=== PATIENT | female | born 1965 | race Caucasian/White ===

== ENCOUNTER → 2019-11-18 | Outpatient (CLI) | payer OTHER | END | disposition home or self-care (01) | LOC: LABWHC1 10:01 | PROVIDERS: ATTEND Orthopaedic Surgery | DX: Z01.812 Encounter for preprocedural laboratory examination (principal) | CPT/HCPCS: 87070 ==

== ENCOUNTER → 2019-11-25 | Outpatient (CLI) | payer OTHER ==
--- NOTE | 2019-11-26 10:56 | ECHOF ---
Referral Reason:I51.7 cardiomegaly MEASUREMENTS -------- HEIGHT: 157.5 cm WEIGHT: 81.6 kg BP: IVSd: 1.3 cm (0.6 - 1.1) LVIDd: 3.2 cm (3.9 - 5.3) LVPWd: 1.0 cm (0.6 - 1.1) IVSs: 1.8 cm LVIDs: 1.6 cm LVPWs: 1.4 cm LAESV Index (A-L): 26.94 ml/m Ao Diam: 2.3 cm (2.0 - 3.7) AV Cusp: 1.8 cm (1.5 - 2.6) LA Diam: 3.1 cm (2.7 - 3.8) MV EXCURSION: 13.189 mm (> 18.000) MV EF SLOPE: 62 mm/s (70 - 150) EPSS: 0.8 cm MV E Tahir: 1.17 m/s MV DecT: 226 ms MV A Tahir: 0.96 m/s MV E/A Ratio: 1.22 AR PHT: 718 ms RAP: 5.00 mmHg RVSP: 11.86 mmHg TAPSE: 28.46 mm FINDINGS -------- Sinus rhythm. This was a technically good study. The left ventricular size is normal. There is borderline concentric left ventricular hypertrophy. Overall left ventricular systolic function is normal with, an EF between 55 - 60 %. Normal LAP Gra de 1 Diastolic Dysfunction. The right ventricle is normal in size. The left atrial size is normal. Normal LA size by volume 22+/-6 ml/m2. The right atrial size is normal. The aortic valve is trileaflet and appears structurally normal. There is mild aortic regurgitation. The mitral valve is normal. There is trace mitral regurgitation. The tricuspid valve appears structurally normal. Trace tricuspid regurgitation present. Right yaa tricular systolic pressure is normal at < 35 mmHg. There is no pulmonic regurgitation present. The aortic root size is normal. Normal inferior vena cava with normal inspiratory collapse consistent with estimated right atrial pre ssure of 5 mmHg. There is no pericardial effusion. CONCLUSIONS -------- 1. Sinus rhythm. 2. This was a technically good study. 3. The left ventricular size is normal. 4. There is borderline concentric left ventricular hypertrophy. 5. Overall left ventricular systolic function is normal with, an EF between 55 - 60 %. 6. Normal LAP Grade 1 Diastolic Dysfunction. 7. The right ventricle is normal in size. 8. The left atrial size is normal. 9. Normal LA size by volume 22+/-6 ml/m2. 10. The right atrial size is normal. 11. The aortic valve is trileaflet and appears structurally normal. 12. There is mild aortic regurgitation. 13. The mitral valve is normal. 14. There is trace mitral regurgitation. 15. The tricuspid valve appears structurally normal. 16. Trace tricuspid regurgitation present. 17. Right ventricular systolic pressure is normal at < 35 mmHg. 18. There is no pulmonic regurgitation present. 19. The aortic root size is normal. 20. Normal inferior vena cava with normal inspiratory collapse consistent with estimated right atrial pressure of 5 mmHg. 21. There is no pericardial effusion. LATEX RIBBON MACHINE OPERATOR: Liberty Benjamin RDCS
== END | disposition home or self-care (01) ==
LOC: RADECHMAIN 13:11
PROVIDERS: ATTEND Family Medicine
DX: I51.7 Cardiomegaly (principal); I35.1 Nonrheumatic aortic (valve) insufficiency
CPT/HCPCS: 93306

== ENCOUNTER → 2019-11-28 | Outpatient (CLI) | payer OTHER ==
[2019-11-28 09:29] LABS: HCT 41.3 % (34.0-46.0); HGB 13.3 gm/dL (11.4-16.0); MCH 28.5 pg (25.0-35.0); MCHC 32.1 g/dL (31.0-37.0); MCV 88.7 fL (80.0-100.0); Mean Platelet Volume 7.4; Platelet Count 385 k/uL (150-450); RBC 4.65 m/uL (3.80-5.40); RDW 13.3 % (11.5-15.5)
[2019-11-28 09:39] LABS: Appearance,Urine Clear (Clear); Bilirubin,Urine Negative (Negative); Blood,Urine Negative (Negative); Color,Urine Light Yellow; Glucose,Urine (UA) Negative (Negative); Ketones,Urine Negative (Negative); Leukocyte Esterase,Urine Negative (Negative); Nitrite,Urine Negative (Negative); Protein,Urine Negative (Negative); Specific Gravity,Urine 1.014 (1.001-1.035); Urobilinogen,Urine <2.0 mg/dL (<2.0)
[2019-11-28 09:47] LABS: INR 0.9 (<1.2); Partial Thromboplastin Time 22.5 sec (22.0-30.0); Prothrombin Time 9.3 sec (9.0-12.0)
[2019-11-28 09:52] LABS: ALT 16 U/L (4-34); AST 23 U/L (14-36); African American GFR (CKD) >90 (>60 ml/min/1.73 sqM); Albumin 4.6 g/dL (3.5-5.0); Alkaline Phosphatase 74 U/L (38-126); Anion Gap 8 mmol/L; Blood Urea Nitrogen 13 mg/dL (7-17); Calcium 9.9 mg/dL (8.4-10.2); Carbon Dioxide 30 mmol/L (22-30); Chloride 102 mmol/L (98-107); Glucose 125 mg/dL (74-99); Non-African American GFR(CKD) >90 (>60 ml/min/1.73 sqM); Potassium 4.4 mmol/L (3.5-5.1); Sodium 140 mmol/L (137-145); Total Bilirubin 0.6 mg/dL (0.2-1.3); Total Protein 7.8 g/dL (6.3-8.2)
== END | disposition home or self-care (01) ==
LOC: LABPAT 08:59
PROVIDERS: ATTEND Orthopaedic Surgery
DX: Z01.812 Encounter for preprocedural laboratory examination (principal); M16.11 Unilateral primary osteoarthritis, right hip; Z51.81 Encounter for therapeutic drug level monitoring
CPT/HCPCS: 36415; 80053; 81003; 85027; 85610; 85730

== ENCOUNTER 2019-12-09 06:57 | Day surgery (SDC) | payer OTHER ==
[2019-12-03 14:33] VITALS: BMI 32.9
[~2019-12-09 06:57] MED LIST: DEXAMETHASONE SOD PHOSPHATE 10 MG/ML 1 ML VIAL IV ONE; GABAPENTIN 300 MG CAP PO ONE; HYDROmorphone 0.5 MG/0.5 ML SYRINGE IVP PRN; LIDOCAINE 1% (10MG/ML) FOR IV START INTRADERMA PRN; MELOXICAM 7.5 MG TAB PO ONE; MIDAZOLAM 2 MG/2 ML VIAL IV PRN; ONDANSETRON 4 MG/2 ML VIAL IVP ONE; ROPIVACAINE 246.25 MG, EPINEPHrine 0.5 MG, KETOROLAC 30 MG, cloNIDine HCL/PF 80 MCG, WA... MISCELLANE ONE; SCOPOLAMINE 1.5MG/72HR PATCH TRANSDERM ONE; TRANEXAMIC ACID 1,000 MG in SODIUM CHLORIDE 0.9% 100 ML IVPB ONE; VANCOMYCIN 1,250 MG in SODIUM CHLORIDE 0.9% 250 ML IVPB ONE
[2019-12-09] MEDS: ACETAMINOPHEN TAB 500 MG TAB PO ONE ×2 (07:31→15:29)
[2019-12-09] MEDS: LACTATED RINGERS 1,000 ML IV SCH ×4 (07:32→21:37)
[2019-12-09] MEDS ORDERED: LACTATED RINGERS 1,000 ML BAG IV ONE (09:38)
[2019-12-09] MEDS ORDERED: diphenhydrAMINE 50 MG/ML 1 ML VIAL ONE (09:38)
[2019-12-09] MEDS ORDERED: PROPOFOL 10 MG/ML 20 ML VIAL IV ONE (09:38)
[2019-12-09] MEDS ORDERED: fentaNYL (PF) 50 MCG/ML 2 ML AMP ONE (09:38)
[2019-12-09] MEDS ORDERED: SODIUM CHLORIDE 0.9% 100 ML BAG ONE (09:38)
[2019-12-09] MEDS ORDERED: HEPARIN SODIUM,PORCINE 10,000 UNIT/ML 1 ML VIAL ONE (09:38)
[2019-12-09] MEDS ORDERED: MIDAZOLAM 2 MG/2 ML VIAL ONE (09:38)
[2019-12-09] MEDS ORDERED: TRANEXAMIC ACID 1,000 MG/10 ML VIAL ONE (09:38)
[2019-12-09] MEDS ORDERED: LACTATED RINGERS 1,000 ML IV ONE (11:06)
--- NOTE | 2019-12-09 11:18 | P.OP ---
Date of Procedure: 12/09/19 Preoperative Diagnosis: Severe osteoarthritis right hip Postoperative Diagnosis: Severe osteoarthritis right hip Procedure(s) Performed: Right total hip arthroplasty with a direct anterior approach Implants: Clement and nephew Polarstem size 3 standard Clement [employer] Nephew R3, 3 hole acetabular shell, 48 mm Clement [employer] Nephew reflection 6.5 mm cancellus screw, 20 mm 2 Clement [employer] Nephew R3, XLPE 20 acetabular liner Clement [employer] Nephew Oxinium femoral head 32 m, -3 All components were press-fit. The articulation is Oxinium on polyethylene. Anesthesia: spinal Surgeon: Tulio Guzmán Composition Roll Maker And Cutter #1: Kimberli Gillespie Estimated Blood Loss (ml): 200 (66 mL returned in Cell Saver) Pathology: other (Femoral head) Condition: stable Disposition: PACU Indications for Procedure: After failure of conservative treatment we discussed the surgical and nonsurgical treatment options at length. Patient wishes to proceed with a total hip arthroplasty with a direct anterior approach. Complications specific to this procedure were discussed at length, including but not limited to infection, leg length discrepancy, dislocation, and nerve injury. Patient is aware of all these complications and informed consent was obtained Operative Findings: The operative findings are consistent with severe osteoarthritis of the right hip Description of Procedure: Patient was seen and evaluated in the preoperative area, consent was reviewed, and the surgical site was marked with a skin marker. Patient was then brought to the operating room and given prophylactic antibiotics intravenously. 1 g of Tranexamic acid was also given. A spinal anesthetic was administered by the anesthesia department. The patient was then placed on the [place] table with the bony prominences well-padded. The hip area was then prepped and draped in usual sterile fashion. A universal timeout was then performed, which confirmed the patient's name, surgical site, ALLERGIES, and procedure being performed. Next the incision site was located at 1 cm distal and 1 cm lateral to the anterior superior iliac spine. The skin and subcutaneous tissues were sharply incised. Incision was carefully dissected down to the fascia overlying the tensor fascia monica muscle. This fascia was then incised in line with the incision. Next, using blunt finger dissection, the tensor fascia monica muscle was dissected off its investing fascia. The muscle was then carefully retracted laterally with a cobra retractor over the lateral neck of the femur. Next, the circumflex vessels were identified and cauterized using the AquaMantis device. The anterior hip capsule was then exposed. The capsule was then opened and an inverted T fashion. Cobra retractors were then placed intracapsularly. The proximal femur was then vi sualized. The femoral neck was then osteotomized appropriate level above the lesser trochanter. Small amount of traction was placed with the [place] table. A small wedge of bone was then removed from the remaining femoral head. Next, using a corkscrew femoral head was easily removed from the acetabulum. On gross visual inspection, the femoral head had complete loss of articular cartilage in mult iple periarticular osteophytes. Attention was then turned to the acetabulum. the acetabulum was exposed and any remaining labrum was excised. Sequential reaming of the acetabulum was performed using fluoroscopic guidance. When the appropriate size was reached, a trial was then placed. The position and fit of the trial was checked with fluoroscopy. The trial was then removed. Then, using fluoroscopic guidance, the final implant was impacted at 20 of anteversion and 40 of abduction, and fully seated in the acetabulum. 2 screws were then placed in the acetabulum. Again fluoroscopy was used to check position of the screws. Next, the liner was then impacted, with a 20 elevated liner located in the anterior superior quadrant. Component locking was confirmed. Attention was then directed to the femur. With the aid of the [place] table, the femur was externally rotated to approximately 130, extended, and abducted under the opposite leg. A side hook was then placed under the proximal femur, and the side hook elevator was used to elevate the proximal femur. Retractors were then placed. A capsular release was performed, as well as a release of the conjoined tendon, which afforded excellent visualization of the proximal femur. Next, a box osteotome was used to lateralize the proximal femur. A guitar maker hand was then used to locate the femoral canal. Sequential broaching was then performed with appropriate size which afforded excellent fixation in the proximal femur. A trial was then placed with appropriate head and neck, and the hip was gently reduced with the aid of the [place] table. Fluoroscopy was then used to check position of the components, as well as to ensure equal leg lengths. The hip was then gently dislocated and the trials were then removed. Final implants were then impacted and the hip was again reduced. Final fluoroscopic x-rays confirmed that the components were in anatomic position, as well as equal leg lengths. The hip was also taken through range of motion, and found to be stable. The hip was then copiously irrigated with antibiotic solution with pulsatile lavage. The hip was then irrigated with Irrisept solution. The soft tissues we re then injected with a ropivacaine solution, which consisted of 246.25 mg of ropivacaine, 0.5 mg of epinephrine, 30 mg of Toradol, 80 g of clonidine, and 48.45 mL of sterile water, for a total of 100 mL of fluid injected. A second dose of 1 g of Tranexamic acid was also given. the fascia was then closed with 2-0 strata fix suture. The subcutaneous tissue was closed with 3-0 Vicryl. The subcuticular tissue was closed with 3-0 strata fix suture. The skin was then closed with Dermabond glue and a sterile silver dressing. The patient was then transferred to the recovery room in stable cond ition. The nurses medical assistants phlebotomists Kimberli Gillespie NP was required due to the complexity of surgery, and the need for skilled surgical scrub tech for positioning, draping, exposure, retraction, and closure of the wound.
--- NOTE | 2019-12-09 11:19 | XR ---
Fluoroscopy INDICATION: Pain FINDINGS: Fluoroscopy time: 25 seconds. Images obtained: 2. IMPRESSIONS: 1. Documentation of fluoroscopy.
[2019-12-09] MEDS ORDERED: ONDANSETRON 4 MG/2 ML VIAL IVP PRN (11:28)
[2019-12-09] MEDS ORDERED: hydrOXYzine PAMOATE 25 MG CAP PO PRN (11:28)
[2019-12-09] MEDS ORDERED: HYDROmorphone 1 MG/ML 1 ML SYRINGE IVP PRN (11:28)
[2019-12-09] MEDS ORDERED: HYDROmorphone 0.5 MG/0.5 ML SYRINGE IVP PRN ×2 (11:28)
[2019-12-09] MEDS ORDERED: NALOXONE 0.4 MG/ML 1 ML VIAL IV PRN (11:28)
[2019-12-09] MEDS ORDERED: MAGNESIUM HYDROXIDE 2,400 MG/10 ML CUP PO PRN (11:28)
--- NOTE | 2019-12-09 12:03 | XR ---
EXAMINATION TYPE: XR Hip Limited RT DATE OF EXAM: 12/09/2019 COMPARISON: None HISTORY: Post right hip replacement TECHNIQUE: Single AP right hip FINDINGS: Femoral prosthesis has been placed. Acetabular component is in place. No acute fractures ar e evident. Soft tissues postsurgical changes are noted. IMPRESSION: 1. No acute fractures post right hip replacement.
[2019-12-09] MEDS: oxyCODONE-APAP 7.5-325MG 1 EACH TAB PO PRN (18:22)
[2019-12-09] MEDS ORDERED: VANCOMYCIN 1,250 MG in SODIUM CHLORIDE 0.9% 250 ML IVPB ONE (20:00)
[2019-12-09] MEDS ORDERED: TEMAZEPAM 15 MG CAP PO PRN (21:00)
[2019-12-09] MEDS ORDERED: SENNOSIDES-DOCUSATE SODIUM 1 EACH TAB PO SCH (21:00)
--- NOTE | 2019-12-09 22:03 | P.CONS ---
History of Present Illness - Reason for Consult Consult date: 12/09/19 Medical management Requesting physician: Tulio Guzmán - Chief Complaint Right hip surgery - History of Present Illness Consultation: This is a pleasant 54-year-old patient of Dr. Cordero. Chronic stable medical conditions include GERD, hypertension, osteoarthritis,. Patient has undergone right total hip arthroplasty. Some local numbness. Pain is controlled. No na usea vomiting. Did tolerate some supper. Sitting up in a chair. No chest pain no shortness of breath. Review of systems: GEN.: None EYES: None HEENT: None NECK: None RESPIRATORY: None CARDIOVASCULAR: None GASTROINTESTINAL: [Reflux GENITOURINARY: None MUSCULOSKELETAL: Joint pains LYMPHATICS: None HEMATOLOGICAL: None PSYCHIATRY: None NEUROLOGICAL: None Past medical history to include: GERD, hypertension, osteoarthritis, Social history: Patient smoked a pack daily for 22 years, stopped 17 years ago. Narcotic. His daughter. Physical examination: VITAL SIGNS: 97.9, 61, 18, 104/67, 98% room air GENERAL: BMI 32.9, sitting up in a chair, comfortable. EYES: Pupils equal. Conjunctiva normal. HEENT: External appearance of nose and ears normal, oral cavity grossly normal. NECK: JVD not raised; masses not palpable. HEART: First and second heart sounds are normal; no edema. LUNGS: Respiratory rate normal; clear to auscultation. ABDOMEN: Soft, nontender, liver spleen not palpable, no masses palpable. PSYCH: Alert and oriented x3; mood and affect normal. MUSCULOSKELETAL: Dressing over the right hip incision site NEUROLOGICAL: Cranial nerves grossly intact; no facial asymmetry, power and sensation grossly intact. LYMPHATICS: No lymph nodes palpable in the axilla and neck INVESTIGATIONS, reviewed in the clinical context: Lab work from 11/28/2019.: White count 6 hemoglobin 13.3 potassium 4.4 creatinine 0.7 Assessment: -Right total hip arthroplasty -Primary osteoarthritis -Essential hypertension -GERD -Obesity BMI 32.9 Plan: Home medications were resumed. Patient's aspirin for DVT prophylaxis. Care was discussed with the patient question were answered. Thank you Dr. Guzmán Past Medical History Past Medical History: GERD/Reflux, Hypertension, Osteoarthritis (OA) Additional Past Medical History / Comment(s): recent echo, bulging disc History of Any Multi-Drug Resistant Organisms: None Reported Past Surgical History: Section, Cholecystectomy Past Anesthesia/Blood Transfusion Reactions: No Reported Reaction Past Psychological History: Anxiety Additional Psychological History / Comment(s): related to surgery Smoking Status: Former smoker Past Alcohol Use History: Rare Additional Past Alcohol Use History / Comment(s): quit smoking 17 yrs. ago, smoked since age of 16 1ppd Past Drug Use History: None Reported - Past Family History Father Family Medical History: Cancer Additional Family Medical History / Comment(s): prostate Medications and Allergies Home Medications Medication Instructions Recorded Confirmed Type Cuterei-Gbwz-Miov [id number] 2 each PO Q6HR PRN 12/03/19 12/03/19 History [Excedrin] Black Cohosh Root [Black Cohosh] 200 mg PO DAILY 12/03/19 12/03/19 History Cholecalciferol [Vitamin D3 (25 2,000 unit PO DAILY 12/03/19 12/09/19 History Mcg = 1000 Iu)] Dexlansoprazole [Dexilant] 60 mg PO Q2D 12/03/19 12/03/19 History Docusate [Colace] 100 mg PO DAILY 12/03/19 12/09/19 History Lisinopril [Zestril] 20 mg PO DAILY 12/03/19 12/03/19 History Meloxicam [Mobic] 15 mg PO DAILY 12/03/19 12/03/19 History Multivitamins, Thera [Multivitamin 1 tab PO DAILY 12/03/19 12/03/19 History (formulary)] oxyCODONE-APAP 7.5-325MG [Percocet 1 tab PO Q6HR PRN 12/03/19 12/03/19 History 7.5-325 mg] Allergies Allergy/AdvReac Type Severity Reaction Status Date / Time No Known Allergies Allergy Verified 12/09/19 07:15 Physical Exam Vitals: Vital Signs Temp Pulse Pulse Resp BP Pulse Ox 12/09/19 15:40 65 97/63 12/09/19 15:25 63 99/65 12/09/19 15:10 63 104/69 12/09/19 14:55 63 99/64 12/09/19 14:40 68 94/59 12/09/19 14:25 68 93/59 12/09/19 14:10 68 95/59 12/09/19 13:55 67 98/62 12/09/19 13:40 67 100/64 12/09/19 13:20 64 101/67 12/09/19 13:05 97.9 F 61 18 104/67 98 12/09/19 12:45 64 16 109/57 95 12/09/19 12:30 67 16 107/56 92 L 12/09/19 12:15 64 14 107/56 94 L 12/09/19 12:01 62 16 107/56 93 L 12/09/19 11:47 61 16 121/61 95 12/09/19 11:31 97.4 F L 70 12 138/63 95 12/09/19 07:46 97.0 F L 89 17 166/98 98 Intake and Output 12/09/19 12/09/19 12/09/19 06:59 14:59 22:59 Intake Total 2550 Output Total 200 Balance 2350 Intake: IV 2550 Output: Estimated Blood Loss 200 Other: Voiding Method Toilet # Voids 0 Weight 81.647 kg
[2019-12-10] MEDS: oxyCODONE-APAP 7.5-325MG 1 EACH TAB PO PRN ×3 (00:38→12:05)
[2019-12-10 03:37] VITALS: TEMP 98
[2019-12-10] MEDS: LACTATED RINGERS 1,000 ML IV SCH (06:35)
[2019-12-10 07:58] LABS: Basophils % (A) 0 %; Eosinophils # (A) 0.1 k/uL (0-0.7); Eosinophils % (A) 1 %; HCT 30.2 % (34.0-46.0); Lymphocytes # (A) 2.4 k/uL (1.0-4.8); Lymphocytes % (A) 24 %; MCH 27.5 pg (25.0-35.0); MCV 88.7 fL (80.0-100.0); Mean Platelet Volume 7.6; Monocytes # (A) 0.7 k/uL (0-1.0); Monocytes % (A) 7 %; Neutrophils # (A) 6.4 k/uL (1.3-7.7); Neutrophils % (A) 65 %; Platelet Count 330 k/uL (150-450); RDW 13.1 % (11.5-15.5); WBC 9.8 k/uL (3.8-10.6)
[2019-12-10 08:00] VITALS: BP 106/65; PULSE 67; RESP 17
--- NOTE | 2019-12-10 08:03 | P.DS ---
Providers Expected date of discharge: 12/10/19 Attending physician: Tulio Guzmán Consults: 12/09/19 11:28 Consult Physician Routine Consulting Provider: Liban Trinidad Consult Reason/Comments: medical management Do you want consulting provider notified?: Yes Primary care physician: Mamadou Cordero - Discharge Diagnosis(es) (1) Osteoarthritis of right hip Current Visit: Yes Status: Acute (2) Status post total replacement of right hip Current Visit: Yes Status: Acute Hospital Course: This is a 54-year-old female with known history of degenerative arthritis of the right hip. The patient presents for evaluation. After discussion and consideration patient elects to proceed with total hip arthroplasty. The patient is seen preoperatively by Dr. Cordero and cleared for surgery. Patient is admitted to [facility] on 12/09/2019 for right anterior total hip arthroplasty. The procedures performed without complication or sequelae. The patient is doing well postoperatively. Labs and vital signs are stable on day of discharge. On day of discharge patient's hip incision is healing well. There is minimal erythema. There is no drainage noted at this time. There is minimal soft tissue swelling to the hip and thigh. Patient has full foot and ankle motion without difficulty or pain. Neurovascular status to the right lower extremity is intact. Patient is discharged to home with homecare in good condition. Pertinent Studies: Laboratory Tests 12/10/19 07:04 WBC 9.8 RBC 3.40 L Hgb 9.3 L D Hct 30.2 L Patient Condition at Discharge: Stable Plan - Discharge Summary Discharge Rx Participant: Yes New Discharge Prescriptions: New Aspirin 325 mg PO BID #60 tab Sennosides-Docusate Sodium [Senokot-S] 2 tab PO DAILY #30 tablet No Action oxyCODONE-APAP 7.5-325MG [Percocet 7.5-325 mg] 1 tab PO Q6HR PRN PRN Reason: Pain Cholecalciferol [Vitamin D3 (25 Mcg = 1000 Iu)] 2,000 unit PO DAILY [id number]-Bnyd-Prtj [id number] [Excedrin] 2 each PO Q6HR PRN PRN Reason: Pain Meloxicam [Mobic] 15 mg PO DAILY Lisinopril [Zestril] 20 mg PO DAILY Multivitamins, Thera [Multivitamin (formulary)] 1 tab PO DAILY Docusate [Colace] 100 mg PO DAILY Dexlansoprazole [Dexilant] 60 mg PO Q2D Black Cohosh Root [Black Cohosh] 200 mg PO DAILY Discharge Medication List Xnztvir-Gbqj-Mzsk [id number] [Excedrin] 2 each PO Q6HR PRN 12/03/19 [History] Black Cohosh Root [Black Cohosh] 200 mg PO DAILY 12/03/19 [History] Cholecalciferol [Vitamin D3 (25 Mcg = 1000 Iu)] 2,000 unit PO DAILY 12/03/19 [History] Dexlansoprazole [Dexilant] 60 mg PO Q2D 12/03/19 [History] Docusate [Colace] 100 mg PO DAILY 12/03/19 [History] Lisinopril [Zestril] 20 mg PO DAILY 12/03/19 [History] Meloxicam [Mobic] 15 mg PO DAILY 12/03/19 [History] Multivitamins, Thera [Multivitamin (formulary)] 1 tab PO DAILY 12/03/19 [History] oxyCODONE-APAP 7.5-325MG [Percocet 7.5-325 mg] 1 tab PO Q6HR PRN 12/03/19 [History] Aspirin 325 mg PO BID #60 tab 12/10/19 [Rx] Sennosides-Docusate Sodium [Senokot-S] 2 tab PO DAILY #30 tablet 12/10/19 [Rx] Follow up Appointment(s)/Referral(s): Mamadou Cordero DO [Primary Care Provider] - 1 Week Tulio Guzmán DO [Doctor of Osteopathic Medicine] - 12/24/19 9:45 am Activity/Diet/Wound Care/Special Instructions: Weightbearing as tolerated with walker Keep dressing in place for 10 days unless saturated Aspirin 325 mg twice a day May shower over dressing Pain medication per Dr. Cordero Follow up with Dr. Tulio Guzmán in 2 weeks. Call [facility] with questions or concerns, Discharge Disposition: HOME WITH HOME HEALTH SERVICES
[2019-12-10 08:06] LABS: HGB 9.3 gm/dL (11.4-16.0)
[2019-12-10] MEDS ORDERED: LISINOPRIL 20 MG TAB PO SCH (09:00)
[2019-12-10] MEDS ORDERED: ASPIRIN 325 MG TAB PO SCH (09:00)
--- NOTE | 2019-12-10 22:28 | P.PN ---
Progress Note - Text Progress Note Date: 12/10/19 - Chief Complaint Right hip surgery Consultation: This is a pleasant 54-year-old patient of Dr. Cordero. Chronic stable medical conditions include GERD, hypertension, osteoarthritis,. Patient has undergone right total hip arthroplasty. Today-feeling better. Some pain of the operative site. Her nausea vomiting. Did work with therapy. No new issues. Review of systems: Was done for constitutional, cardiovascular, GI, pulmonary., Musculoskeletal relevant finding as above Current medications reviewed in today's electronic records Physical examination: VITAL SIGNS: 98, 67, 17, 106/65, 100% on room air GENERAL:, sitting up in a chair, comfortable. EYES: Pupils equal. Conjunctiva normal. HEENT: External appearance of nose and ears normal, oral cavity grossly normal. NECK: JVD not raised; masses not palpable. HEART: First and second heart sounds are normal; no edema. LUNGS: Respiratory rate normal; clear to auscultation. ABDOMEN: Soft, nontender, liver spleen not palpable, no masses palpable. PSYCH: Alert and oriented x3; mood and affect normal. MUSCULOSKELETAL: Dressing over the right hip incision site INVESTIGATIONS, reviewed in the clinical context: Hemoglobin 9.3 Lab work from 11/28/2019.: White count 6 hemoglobin 13.3 potassium 4.4 creatinine 0.7 Assessment: -Right total hip arthroplasty -Primary osteoarthritis -Essential hypertension -GERD -Obesity BMI 32.9 -Acute postprocedure blood loss anemia as expected from surgery Plan: Patient's lisinopril has been held. Advised to resume was systolic blood pressure goes above 1:30. Put on iron supplement. Thank you Dr. Guzmán
== END 2019-12-10 14:04 | disposition home health service (06) ==
LOC: OR 06:57 → EDSTATUS 09:10 → 4SSUR 11:14 → OR 12-10 14:04
PROVIDERS: ATTEND Orthopaedic Surgery
DX: M16.11 Unilateral primary osteoarthritis, right hip (principal); I10 Essential (primary) hypertension; K21.9 Gastro-esophageal reflux disease without esophagitis; E66.9 Obesity, unspecified; Z79.899 Other long term (current) drug therapy; Z87.891 Personal history of nicotine dependence; Z68.32 Body mass index [BMI] 32.0-32.9, adult; Z98.890 Other specified postprocedural states; Z90.49 Acquired absence of other specified parts of digestive tract; Z82.49 Family history of ischemic heart disease and other diseases of the circulatory system; Z97.3 Presence of spectacles and contact lenses
CPT/HCPCS: 97161; 97535; 97165; 86891; 86900; 86901; 88305; 85025; 86850; 88311; 73501; 27130; C1776; J2250; J0171; J3370; J1200; J1644; J1100; J2405; J3010; J1885; J2795; J2704; J0735

== ENCOUNTER → 2021-06-17 | Outpatient (CLI) | payer OTHER ==
--- NOTE | 2021-06-17 14:59 | XR ---
EXAMINATION TYPE: XR KUB DATE OF EXAM: 06/17/2021 COMPARISON: NONE HISTORY: Pain TECHNIQUE: Single supine KUB image of the abdomen is obtained FINDINGS: Small bowel demonstrates no evidence for dilatation or air fluid levels. Gas and fecal material is seen in non-distended colon. No convincing evidence for pneumoperitoneum. 7.4 mm right renal calculus. The lung bases are clear. The osseous structures are intact. IMPRESSION: 1. Overall nonobstructive bowel gas pattern.
== END | disposition home or self-care (01) ==
LOC: RADXRMAIN 14:21
PROVIDERS: ATTEND Family Medicine
DX: N20.0 Calculus of kidney (principal)
CPT/HCPCS: 74018

== ENCOUNTER → 2021-09-02 | Outpatient (CLI) | payer OTHER ==
--- NOTE | 2021-09-02 11:15 | XR ---
EXAMINATION TYPE: XR KUB DATE OF EXAM: 09/02/2021 11:09 AM CLINICAL HISTORY: Right-sided kidney stone and flank pain. TECHNIQUE: Single supine KUB image of the abdomen is obtained. COMPARISON: Abdominal x-ray June 17, 2021. FINDINGS: Roughly 8 to 9 mm right renal calculus at the inferior L3 level current study projects over the mid to lower aspect right kidney grossly stable in appearance and position from prior study. Sta ble 5 mm lower pole left renal calculus at L2 level current study lower pole of the left kidney. Some overlying colonic fecal material. Tiny scattered bilateral pelvic phleboliths. Overall nonobstructive bowel gas pattern. Metallic hardware from right hip surgery is partially image d similar to prior. IMPRESSION: As above.
== END | disposition home or self-care (01) ==
LOC: RADXRMAIN 10:59
PROVIDERS: ATTEND Family Medicine
DX: N20.0 Calculus of kidney (principal)
CPT/HCPCS: 74018

== ENCOUNTER → 2021-09-14 | Outpatient (CLI) | payer OTHER ==
[2021-09-14 11:16] LABS: Basophils # (A) 0.1 k/uL (0-0.2); Basophils % (A) 1 %; Eosinophils # (A) 0.3 k/uL (0-0.7); Eosinophils % (A) 3 %; HCT 39.6 % (34.0-46.0); HGB 12.6 gm/dL (11.4-16.0); Lymphocytes # (A) 2.8 k/uL (1.0-4.8); Lymphocytes % (A) 24 %; MCH 28.4 pg (25.0-35.0); MCHC 31.8 g/dL (31.0-37.0); MCV 89.3 fL (80.0-100.0); Mean Platelet Volume 7.7; Monocytes # (A) 0.8 k/uL (0-1.0); Monocytes % (A) 6 %; Neutrophils # (A) 7.7 k/uL (1.3-7.7); Neutrophils % (A) 65 %; Platelet Count 413 k/uL (150-450); RBC 4.44 m/uL (3.80-5.40); RDW 13.3 % (11.5-15.5); WBC 11.8 k/uL (3.8-10.6)
[2021-09-14 11:37] LABS: African American GFR (CKD) >90 (>60 ml/min/1.73 sqM); Anion Gap 8 mmol/L; Blood Urea Nitrogen 13 mg/dL (7-17); Calcium 10.2 mg/dL (8.4-10.2); Carbon Dioxide 31 mmol/L (22-30); Chloride 101 mmol/L (98-107); Glucose 86 mg/dL (74-99); Non-African American GFR(CKD) >90 (>60 ml/min/1.73 sqM); Potassium 4.1 mmol/L (3.5-5.1); Sodium 140 mmol/L (137-145)
== END | disposition home or self-care (01) ==
LOC: LABPAT 10:46
PROVIDERS: ATTEND Urology
DX: N20.0 Calculus of kidney (principal); R10.9 Unspecified abdominal pain
CPT/HCPCS: 80048; 85025

== ENCOUNTER 2021-09-16 12:55 | Day surgery (SDC) | payer OTHER ==
[2021-09-14 15:29] VITALS: BMI 36.3
--- NOTE | 2021-09-16 07:34 | P.GSHP ---
History of Present Illness H&P Date: 09/16/21 Chief Complaint: Right flank pain The patient is a 56-year-old white female with no prior history of urolithiasis. She has experienced right flank and lower abdominal pain since December 2020. A KUB x-ray shows an 8-9 mm right lower pole renal calculus, as well as a 5 mm left lower pole renal calculus. She denies left flank pain. - Constitutional Constitutional: Denies chills, Denies fever - Gastrointestinal Gastrointestinal: Reports nausea, Denies vomiting - Genitourinary (Female) Genitourinary: Reports flank pain, Reports hematuria, Reports kidney stones, Denies dysuria Past Medical History Past Medical History: GERD/Reflux, Hypertension, Renal Disease Additional Past Medical History / Comment(s): kidney stones History of Any Multi-Drug Resistant Organisms: None Reported Past Surgical History: Section, Cholecystectomy, Joint Replacement Additional Past Surgical History / Comment(s): rt hip replacement. colonoscopy Past Anesthesia/Blood Transfusion Reactions: No Reported Reaction Smoking Status: Never smoker - Past Family History Father Family Medical History: Cancer Additional Family Medical History / Comment(s): pancreatic cancer Medications and Allergies Home Medications Medication Instructions Recorded Confirmed Type Black Cohosh Root [Black Cohosh] 200 mg PO DAILY 12/03/19 09/14/21 History Cholecalciferol [Vitamin D3 (25 2,000 unit PO DAILY 12/03/19 09/14/21 History Mcg = 1000 Iu)] Multivitamins, Thera [Multivitamin 1 tab PO DAILY 12/03/19 09/14/21 History (formulary)] lisinopriL [Zestril] 20 mg PO HS 12/03/19 09/14/21 History Ascorbic Acid [Vitamin C] 500 mg PO DAILY 09/14/21 09/14/21 History Aspirin 325 mg PO DAILY PRN 09/14/21 09/14/21 History Yodjovr-Uojf-Wlsb [id number] 1 each PO DAILY PRN 09/14/21 09/14/21 History [Excedrin] Meloxicam 15 mg PO DAILY 09/14/21 09/14/21 History Pantoprazole [Protonix] 40 mg PO DAILY 09/14/21 09/14/21 History Tamsulosin [Flomax] 0.4 mg PO DAILY PRN 09/14/21 09/14/21 History Vit C/E/Zn/Coppr/Lutein/Zeaxan 1 tab PO BID 09/14/21 09/14/21 History [Preservision Areds 2 Chew Tab] amLODIPine [Norvasc] 5 mg PO DAILY 09/14/21 09/14/21 History traMADol HCL [Ultram] 50 mg PO Q6HR PRN 09/14/21 09/14/21 History Allergies Allergy/AdvReac Type Severity Reaction Status Date / Time No Known Allergies Allergy Verified 09/14/21 15:13 Surgical - Exam - General well developed, well nourished, no distress - Respiratory normal respiratory effort - Abdomen Abdomen: soft, non tender, no guarding, no rigid, no rebound - Psychiatric oriented to time, oriented to person, oriented to place, speech is normal, memory intact Results - Imaging CT scan - abdomen: report reviewed, image reviewed Assessment and Plan (1) Calculus of kidney Status: Acute Code(s): N20.0 - CALCULUS OF KIDNEY SNOMED Code(s): 59585061 Plan: The patient has a symptomatic right renal calculus and desires treatment. We discussed in detail the options of extracorporal shockwave lithotripsy (ESWL) versus ureteroscopy with laser lithotripsy and stent placement. She has elected to undergo the latter. She is aware of potential risks, which include anesthesia, bleeding, infection, and ureteral injury. She is aware of the possible need for secondary treatment.
[~2021-09-16 12:55] MED LIST changes: -DEXAMETHASONE SOD PHOSPHATE 10 MG/ML 1 ML VIAL IV ONE; +DEXAMETHASONE SOD PHOSPHATE 4 MG/ML 1 ML VIAL IV ONE; -GABAPENTIN 300 MG CAP PO ONE; -HYDROmorphone 0.5 MG/0.5 ML SYRINGE IVP PRN; +LACTATED RINGERS 1,000 ML IV SCH; -LIDOCAINE 1% (10MG/ML) FOR IV START INTRADERMA PRN; -MELOXICAM 7.5 MG TAB PO ONE; -ROPIVACAINE 246.25 MG, EPINEPHrine 0.5 MG, KETOROLAC 30 MG, cloNIDine HCL/PF 80 MCG, WA... MISCELLANE ONE; -TRANEXAMIC ACID 1,000 MG in SODIUM CHLORIDE 0.9% 100 ML IVPB ONE; -VANCOMYCIN 1,250 MG in SODIUM CHLORIDE 0.9% 250 ML IVPB ONE
--- NOTE | 2021-09-16 13:26 | XR ---
KUB. HISTORY: Right renal calculus COMPARISON: 09/02/2021. The millimeter calculus lower pole the right kidney is again seen. Small 3 to 4 mm calculus in the le ft lower pole is also stable. Bowel gas pattern is normal. There has been a cholecystectomy. The lung bases are clear. The osseous structures are intact with the exception of a right hip prosthe sis. Impression: No change in the bilateral lower pole renal calculi.
[2021-09-16] MEDS ORDERED: LIDOCAINE 1% (10MG/ML) FOR IV START INTRADERMA ONE (13:40)
[2021-09-16 13:46] LABS: Glucose,Whole Blood 96 mg/dL (75-99)
[2021-09-16 13:46] LABS: Glucose,Whole Blood 34 mg/dL (75-99)
[2021-09-16 13:48] VITALS: RESP 16
[2021-09-16] MEDS ORDERED: LIDOCAINE 1% INJ 10MG/ML (20 ML MDV) ONE (14:36)
[2021-09-16] MEDS ORDERED: .fentaNYL (PF) 50 MCG/ML 2 ML AMP ONE (14:36)
[2021-09-16] MEDS ORDERED: SUCCINYLCHOLINE CHLORIDE 100 MG/5 ML SYR IV ONE (14:36)
[2021-09-16] MEDS ORDERED: PROPOFOL 10 MG/ML 20 ML VIAL IV ONE (14:36)
[2021-09-16] MEDS ORDERED: MIDAZOLAM 2 MG/2 ML VIAL ONE (14:36)
[2021-09-16] MEDS ORDERED: IOPAMIDOL-370 50ML BTL MISCELLANE ONE (15:10)
--- NOTE | 2021-09-16 16:18 | P.OP ---
Date of Procedure: 09/16/21 Preoperative Diagnosis: Right renal calculus Postoperative Diagnosis: Same Procedure(s) Performed: Cystoscopy, right retrograde pyelogram, right ureteroscopy with Holmium laser lithotripsy, right ureteral stent insertion Anesthesia: OSMARA Surgeon: Massimo Bentley Estimated Blood Loss (ml): 5 IV fluids (ml): 700 Pathology: none sent Condition: stable Disposition: PACU Indications for Procedure: The patient is a 56-year-old white female with no prior history of urolithiasis. She has experienced right flank and lower abdominal pain since December 2020. A KUB x-ray shows an 8-9 mm right lower pole renal calculus, as well as a 5 mm left lower pole renal calculus. She denies left flank pain. Operative Findings: Right renal pelvic calculus, fragmented completely. Description of Procedure: The patient was taken to the operating room and placed in the dorsolithotomy position, with legs supported in Charles stirrups. The external genitalia was prepped and draped sterilely. The 30 lens was used to introduce the 21-[place] Giang cystoscopic sheath through the urethra and into the bladder under direct vision. The bladder was examined in its entirety. Both ureteral orifices were normal anatomic location and configuration, and clear urine effluxed from both. No tumors or foreign bodies were seen. Using a 10-[place] cone-tipped catheter, a right retrograde pyelogram was performed. The entire course of the ureter appeared normal. A filling defect was seen within the right renal pelvis, representing the calculus. A 0.038 inch Glidewire was passed through the cystoscope. The ureteral orifice was cannulated, and the Glidewire was advanced up to the renal pelvis. The cystoscope was removed, and an 11-[place] dilator was passed over the wire. An attempt was then made to pass the [employer] flexible ureteroscope over the wire, but it would not pass through the ureteral orifice. Therefore, the 11/13- [place] ureteral access catheter was passed over the wire, up to the proximal ure ter. The flexible ureteroscope was then passed through the ureteral access catheter sheath, up to the renal pelvis where the stone was identified. The 272 micron Holmium laser probe was passed through the ureteroscope, and lithotripsy was performed. The calculus was not dense and was dusted completely. No additional calculi were seen. A retrograde pyelogram was repeated, and no filling defects were seen. The ureteroscope was then removed, and the Glidewire was passed through the ureteral access catheter sheath, which was removed. The Glidewire was backloaded into the cystoscope, which was passed into the bladder. A 24 cm, 4.8-[place] double-J ureteral stent was placed over the wire. Her stent positioning was verified fluoroscopically and endoscopically. The bladder was emptied and the cystoscope removed. The patient tolerated the procedure well and was taken to the recovery room in stable condition. MUSIC ROCKS Report: Procedure Acuity: Semi-Urgent Stone Size and Location: 8 mm, right renal pelvis Ureteral Dilation: No Ureteral Access Sheath Used: Yes Stone Sent for Analysis: No All Stones/Fragments Were Removed with a Basket: No Complications: No Preoperative Antibiotics Given: Yes Stent Placed: Yes If Stent Placed, Was String Left Attached: No If Stent Placed, When is it to be Removed: 1 week Discharge Medications: Tamsulosin, Toradol
[2021-09-16 16:32] VITALS: TEMP 96.8
[2021-09-16] MEDS: HYDROmorphone 0.5 MG/0.5 ML SYRINGE IVP PRN ×2 (16:49→17:05)
--- NOTE | 2021-09-16 17:36 | FL ---
Fluoroscopy HISTORY: Ureteral stent placement 108 seconds fluoroscopy time supplied to the referring clinician. 4 intraoperative C-arm images docu ment the procedure. See dictated report from urology.
[2021-09-16] MEDS ORDERED: HYDROcodone/APAP 5-325MG 1 EACH TAB ONE (18:36)
[2021-09-16] MEDS ORDERED: IV FLUID CONTINUATION 1,000 ML IV ONE (18:42)
[2021-09-16] MEDS ORDERED: HYDROcodone/APAP 5-325MG 1 EACH TAB PO ONE (18:45)
[2021-09-16 19:15] VITALS: BP 118/65
[2021-09-16 19:21] VITALS: PULSE 86
== END 2021-09-16 19:39 | disposition home or self-care (01) ==
LOC: OR 12:55
PROVIDERS: ATTEND Urology
DX: N20.0 Calculus of kidney (principal)
CPT/HCPCS: 52356; 74018; C2625; C1758; C1769; J2250; J1100; J0690; J2405; J2001; J3010; J0330; J2704; J1170; Q9967

== ENCOUNTER → 2021-10-24 | Outpatient (CLI) | payer OTHER ==
--- NOTE | 2021-10-24 11:16 | US ---
EXAMINATION TYPE: US kidneys/renal and bladder DATE OF EXAM: 10/24/2021 COMPARISON: XR KUB 2020, Harika 09/16/21 CLINICAL HISTORY: N20.0 Calculus of kidney. Hx of renal stones; hx of right-sided lithotripsy. EXAM MEASUREMENTS: Right Kidney: 10.8 x 3.3 x 4.8 cm Left Kidney: 11.9 x 5.2 x 5.3 cm Right Kidney: Dilated pelvis; multiple echogenic foci seen with twinkle artifact; largest 0.4 cm Left Kidney: Dilated pelvis; echogenic focus lower pole with twinkle artifact 0.6 cm Bladder: wnl Bilateral Jets seen: Yes IMPRESSION: 1. Small bilateral renal stones. Larger stone without obstruction is at the inferior pole left kidney measuring 0.6 cm.
== END | disposition home or self-care (01) ==
LOC: RADUSWWP 09:43
PROVIDERS: ATTEND Urology
DX: N20.0 Calculus of kidney (principal)
CPT/HCPCS: 76770

== ENCOUNTER → 2023-06-04 | Outpatient (CLI) | payer OTHER ==
--- NOTE | 2023-06-04 11:50 | XR ---
EXAMINATION TYPE: XR Hip Complete LT DATE OF EXAM: 06/04/2023 11:23 AM INDICATION: Patient age:Female; 58 years old; Reason for study: M25.552 Pain L hip; PHH. COMPARISON: None. TECHNIQUE: The left hip was examined in the frontal and lateral projections and a AP pelvis. FINDINGS: No evidence for acute process, joint dislocation or significant soft tissue swelling. Osteo phyte formation of the superior acetabulum of the hip with osteophyte formation and joint space narro wing. IMPRESSION: 1. No evidence for acute process. 2. Moderate to severe hip osteoarthrosis.
== END | disposition home or self-care (01) ==
LOC: RADXRMAIN 10:57
PROVIDERS: ATTEND Family Medicine
DX: M16.12 Unilateral primary osteoarthritis, left hip (principal)
CPT/HCPCS: 73502

== ENCOUNTER → 2023-12-05 | Outpatient (CLI) | payer OTHER ==
--- NOTE | 2023-12-05 14:26 | XR ---
EXAMINATION TYPE: XR chest 2V DATE OF EXAM: 12/05/2023 COMPARISON: None INDICATION: Hypertension difficulty in breathing TECHNIQUE: Frontal and lateral views of the chest are obtained. FINDINGS: The heart size is normal. The pulmonary vasculature is normal. The lungs are clear. IMPRESSION: 1. No acute pulmonary process.
[2023-12-05 15:53] LABS: HCT 45.5 % (37.2-46.3); HGB 14.4 g/dL (12.0-15.0); MCH 27.4 pg (27.0-32.0); MCHC 31.6 g/dL (32.0-37.0); MCV 86.5 FL (80.0-97.0); Mean Platelet Volume 10.2 FL (9.5-12.2); NRBC Per 100 WBC 0 X 10*3/uL (0.00-0.01); Platelet Count 461 X 10*3/uL (140-440); RBC 5.26 X 10*6/uL (4.10-5.20); RDW 14.3 % (11.5-14.5); WBC 6.42 X 10*3/uL (4.50-10.00)
[2023-12-05 16:22] LABS: Basophils # (A) 0.03 X 10*3/uL (0.00-0.10); Basophils % (A) 0.5 %; Eosinophils # (A) 0.12 X 10*3/uL (0.04-0.35); Eosinophils % (A) 1.9 %; Lymphocytes # (A) 1.76 X 10*3/uL (0.90-5.00); Lymphocytes % (A) 27.4 %; Monocytes # (A) 0.54 X 10*3/uL (0.20-1.00); Monocytes % (A) 8.4 %; Neutrophils # (A) 3.94 X 10*3/uL (1.80-7.70); Neutrophils % (A) 61.3 %; RBC Morphology Normal (Normal)
[2023-12-05 16:41] LABS: ALT 45 U/L (8-44); AST 26 U/L (13-35); Albumin 4.5 g/dL (3.8-4.9); Albumin/Globulin Ratio 1.36 Ratio (1.60-3.17); Alkaline Phosphatase 95 U/L (41-126); BUN/Creat Ratio 23.57 Ratio (12.00-20.00); Blood Urea Nitrogen 16.5 mg/dL (9.0-27.0); Carbon Dioxide 24.5 mmol/L (21.6-31.8); Chloride 105 mmol/L (96-109); Chol/HDL Ratio 5.01 Ratio; Globulin 3.3 g/dL (1.6-3.3); Glucose 142 mg/dL (70-110); LDL Cholesterol,Calculated 127.1 mg/dL (0.0-131.0); Potassium 4.1 mmol/L (3.5-5.5); Sodium 143 mmol/L (135-145); T4, Free (Free Thyroxine) 1.05 ng/dL (0.80-1.80); Total Bilirubin <0.2 mg/dL (0.3-1.2); Total Protein 7.8 g/dL (6.2-8.2)
== END | disposition home or self-care (01) ==
LOC: RADXRMAIN 10:26
PROVIDERS: ATTEND Family Medicine
DX: I10 Essential (primary) hypertension (principal); R06.00 Dyspnea, unspecified
CPT/HCPCS: 71046; 80053; 80061; 83605; 84439; 84443; 84481; 85025

== ENCOUNTER → 2024-12-10 | Outpatient (CLI) | payer OTHER ==
[2024-12-10 11:10] LABS: INR 0.9 (<1.2); Partial Thromboplastin Time 22.3 sec (22.0-30.0); Prothrombin Time 9.9 sec (10.0-12.5)
[2024-12-10 15:43] LABS: HCT 39.2 % (37.2-46.3); HGB 12.4 g/dL (12.0-15.0); MCH 27.3 pg (27.0-32.0); MCHC 31.6 g/dL (32.0-37.0); MCV 86.3 FL (80.0-97.0); Mean Platelet Volume 11.1 FL (9.5-12.2); NRBC Per 100 WBC 0 X 10*3/uL (0.00-0.01); Platelet Count 426 X 10*3/uL (140-440); RBC 4.54 X 10*6/uL (4.10-5.20); RDW 14.6 % (11.5-14.5); WBC 14.01 X 10*3/uL (4.50-10.00)
[2024-12-10 15:59] LABS: Glucose 127 mg/dL (70-110)
[2024-12-10 16:00] LABS: ALT 22 U/L (8-44); AST 24 U/L (13-35); Albumin 4.5 g/dL (3.8-4.9); Albumin/Globulin Ratio 1.61 Ratio (1.60-3.17); Alkaline Phosphatase 109 U/L (41-126); Calcium 9.5 mg/dL (8.7-10.3); Carbon Dioxide 22.5 mmol/L (21.6-31.8); Chloride 100 mmol/L (96-109); Globulin 2.8 g/dL (1.6-3.3); Potassium 4.1 mmol/L (3.5-5.5); Sodium 138 mmol/L (135-145); Total Bilirubin <0.2 mg/dL (0.3-1.2); Total Protein 7.3 g/dL (6.2-8.2)
== END | disposition home or self-care (01) ==
LOC: LABPAT 09:50
PROVIDERS: ATTEND Orthopaedic Surgery
DX: Z01.818 Encounter for other preprocedural examination (principal); M16.12 Unilateral primary osteoarthritis, left hip; Z22.322 Carrier or suspected carrier of Methicillin resistant Staphylococcus aureus
CPT/HCPCS: 80053; 85027; 85610; 85730; 86850; 86900; 86901; 87070; 93005

== ENCOUNTER 2024-12-22 07:38 | Day surgery (SDC) | payer OTHER ==
[2024-12-18 12:04] VITALS: BMI 36.6
[~2024-12-22 07:38] MED LIST changes: -DEXAMETHASONE SOD PHOSPHATE 4 MG/ML 1 ML VIAL IV ONE; -LACTATED RINGERS 1,000 ML IV SCH; -MIDAZOLAM 2 MG/2 ML VIAL IV PRN; -ONDANSETRON 4 MG/2 ML VIAL IVP ONE; -SCOPOLAMINE 1.5MG/72HR PATCH TRANSDERM ONE; +TRANEXAMIC 1,000 MG/100ML-NACL 1,000 MG in SALINE 1 100ML.BAG IVPB PRN
[2024-12-22] MEDS ORDERED: LIDOCAINE 1% (10MG/ML) FOR IV START INTRADERMA PRN (07:40)
[2024-12-22] MEDS: MELOXICAM 7.5 MG TAB PO PRN (08:23)
[2024-12-22] MEDS: ACETAMINOPHEN TAB 500 MG TAB PO PRN (08:23)
[2024-12-22] MEDS: ONDANSETRON 4 MG/2 ML VIAL IVP ONE (08:24)
[2024-12-22] MEDS: GABAPENTIN 300 MG CAP PO PRN (08:24)
[2024-12-22] MEDS: DEXAMETHASONE SOD PHOSPHATE 4 MG/ML 1 ML VIAL IV ONE (08:26)
[2024-12-22] MEDS: LACTATED RINGERS 1,000 ML IV SCH (08:32)
[2024-12-22 08:37] LABS: Glucose,Whole Blood 99 mg/dL (70-110)
[2024-12-22] MEDS ORDERED: NALOXONE 0.4 MG/ML 1 ML VIAL IV PRN (08:46)
[2024-12-22] MEDS ORDERED: MAGNESIUM HYDROXIDE 2,400 MG/30 ML CUP PO PRN (08:46)
[2024-12-22] MEDS ORDERED: HYDROmorphone 0.5 MG/0.5 ML SYRINGE IVP PRN ×2 (08:46)
[2024-12-22] MEDS ORDERED: ONDANSETRON 4 MG/2 ML VIAL IVP PRN (08:46)
[2024-12-22] MEDS: MIDAZOLAM 2 MG/2 ML VIAL IV ONE (08:51)
[2024-12-22] MEDS ORDERED: ROPIVACAINE 5 MG/ML 30 ML VIAL ONE (09:07)
[2024-12-22] MEDS ORDERED: TRANEXAMIC 1,000 MG/100ML-NACL PREMIX BAG ONE (09:07)
[2024-12-22] MEDS ORDERED: PROPOFOL 10 MG/ML 20 ML VIAL IV ONE (09:07)
[2024-12-22] MEDS ORDERED: MIDAZOLAM 2 MG/2 ML VIAL ONE (09:07)
[2024-12-22] MEDS ORDERED: DEXAMETHASONE SOD PHOSPHATE 4 MG/ML 1 ML VIAL ONE (09:07)
[2024-12-22] MEDS: ROPIVACAINE 5 MG/ML 30 ML VIAL MISCELLANE ONE ×2 (09:42→10:00)
[2024-12-22] MEDS: ceFAZolin 1,000 MG in SODIUM CHLORIDE 0.9% 1,000 ML IRRIGATION ONE (09:43)
--- NOTE | 2024-12-22 10:25 | P.OP ---
Date of Procedure: 12/22/24 Preoperative Diagnosis: Severe osteoarthritis left hip Postoperative Diagnosis: Severe osteoarthritis left hip Procedure(s) Performed: Left total hip arthroplasty with a direct anterior approach Implants: [employer] Polarstem standard size 3 with a collar [employer] R3, 3 hole hemispherical acetabular shell, 50 mm [employer] Reflection 6.5 mm cancellus screws, 20 mm 2 [employer] R3, XLPE 20 acetabular liner [employer]hew Oxinium femoral head 32 mm, +0 All components were press-fit. The articulation is Oxinium on polyethylene. Anesthesia: spinal Surgeon: Tulio Guzmán Finishing Frame Runner #1: Kiera Fernández Estimated Blood Loss (ml): 350 Pathology: none sent Condition: stable Disposition: PACU Indications for Procedure: After failure of conservative treatment we discussed the surgical and nonsurg ical treatment options at length. Patient wishes to proceed with a total hip arthroplasty with a direct anterior approach. Complications specific to this procedure were discussed at length, including but not limited to infection, leg length discrepancy, dislocation, nerve injury, and fracture. Covid-19 was also discussed at length with the patient, and they are aware of the current policies and procedures. The patient was given the option of delaying surgery, but they elect to proceed knowing these risks. Patient is aware of all these complications and informed consent was obtained Operative Findings: The operative findings are consistent with severe osteoarthritis left hip Description of Procedure: The patient was seen and evaluated in the preoperative area and the consent was reviewed. The operative site was marked with a skin marker. The patient verified the procedure and operative site. A ELLE block was placed by charlee cohn in the preoperative area. The patient was then brought to the operating room and given preoperative antibiotics intravenously. 1 g of Tranexamic acid was also given intravenously. A spinal anesthetic was administered by the anesthesia department. The patient was then placed on the [place] table with the bony prominences well-padded. The hip area was then prepped with a ChloraPrep solution and draped in the usual sterile fashion. A universal timeout was then performed, which confirmed the patient's name, surgical site, ALLERGIES, and procedure being performed on the consent. Next th e incision site was located at 1 cm distal and 4 cm lateral to the anterior superior iliac spine. The skin and subcutaneous tissues were sharply incised. Incision was carefully dissected down to the fascia overlying the tensor fascia monica muscle. This fascia was then incised in line with the muscle fibers. Care was taken to stay laterally in order to avoid injuring the lateral femoral cutaneous nerve. Next, using blunt finger dissection, the tensor fascia monica muscle was dissected off its investing fascia. The muscle was then carefully retracted laterally with a cobra retractor over the lateral neck of the femur. Next, the circumflex vessels were identified and cauterized using the Aquamantis device. The anterior hip capsule was then exposed. The capsule was then opened and an inverted T fashion. The retractors were then placed intracapsularly. The retractors were maintained intracapsular throughout the procedure. The proximal femur was then visualized. Fluoroscopic x-rays were then taken in order to evaluate the preoperative leg lengths. A small amount of traction was placed on the leg. The femoral neck was then osteotomized at the appropriate level above the lesser trochanter. A small wedge of bone was then removed from the remaining femoral head. Next, using a corkscrew the femoral head was removed from the acetabulum. On gross visual inspection, the femoral head had complete loss of articular cartilage and multiple periarticular osteophytes. The femoral head was then measured. Attention was then turned to the acetabulum. The acetabulum was exposed and any remaining labrum was excised. Sequential reaming of the acetabulum was performed using fluoroscopic guidance until there was a good bed of bleeding cancellus bone. When the appropriate size was reached, a trial was then placed. The position and fit of the trial was checked with fluoroscopy. The trial was then removed. Then, using fluoroscopic guidance, the final implant was impacted at 20 of anteversion and 40 of abduction, and fully seated in the acetabulum. 2 screws were then placed in the acetabulum. Again fluoroscopy was used to check position of the screws. Next, the liner was then impacted, with a 20 elevated liner located in the anterior superior quadrant. Component locking was confirmed. Attention was then directed to the femur. With the aid of the [place] table, the femur was externally rotated to approximately 130, extended, and adducted under the opposite leg. A side hook was then placed under the proximal femur, and the side hook elevator was used to elevate the proximal femur while releasing the capsule. Retractors were then placed. A capsular release was performed, as well as a release of the conjoined tendon, which afforded excellent visualizati on of the proximal femur. Next, a box osteotome was used to lateralize the proximal femur. A hand wrapper operator was then used to locate the femoral canal. Sequential broaching was then performed with appropriate size which afforded excellent fixation in the proximal femur. A trial was then placed with appropriate head and neck, and the hip was gently reduced with the aid of the [place] table. Fluoroscopy was then used to check position of the components, as well as to evaluate the leg lengths and offset. The leg lengths and offset were measured as closely as possible to ensure stability of the hip. The hip was then gently dislocated and the trials were then removed. Final implants were then impacted and the hip was again reduced. Final fluoroscopic x-rays confirmed that the components were in anatomic position. The leg lengths and offset were measured and were found to coincide with the trial measurements. The hip was also taken through range of motion, and found to be stable. The hip was then copiously irrigated with antibiotic solution with pulsatile lavage. The hip was then irrigated with Irrisept solution. The soft tissues were then injected with a ropivacaine solution. A second dose of 1 g of Tranexamic acid was also given intravenously. The fascia was then closed with 2-0 strata fix suture. The subcutaneous tissue was closed with 3-0 Vicryl. The subcuticular tissue was closed with 3-0 moncryl suture. The skin was then closed with Exofin skin glue. After the glue and dried, and Optifoam silver impregnated dressing was applied. The patient was then transferred to the recovery room in stable condition. The dyer assistant JOSLYN Green was required due to the complexity of surgery, and the need for skilled surgical forceps fabricator for positioning, draping, exposure, retraction, and closure of the wound.
--- NOTE | 2024-12-22 10:50 | XR ---
EXAMINATION TYPE: XR Hip Limited LT DATE OF EXAM: 12/22/2024 10:35 AM COMPARISON: None. CLINICAL INDICATION: Female, 59 years old with history of M16.12 LEFT HIP OSTEOARTHRITIS, Postoperati ve evaluation TECHNIQUE: XR Hip Limited LT views were obtained FINDINGS: Noted are changes of total hip arthroplasty with femoral and acetabular components appearing well sea elver. Alignment is anatomic. Postsurgical soft tissue changes are evident. IMPRESSION: Satisfactory postoperative alignment [facility], , 12/22/2024 10:48 AM
--- NOTE | 2024-12-22 10:50 | FL ---
Fluoroscopy History: M16.12 LEFT HIP OSTEOARTHRITIS fl time: 27.3 DAP: [id number] left anterior hip [facility], , 12/22/2024 10:48 AM
[2024-12-22] MEDS: HYDROmorphone 0.5 MG/0.5 ML SYRINGE IVP PRN (11:52)
[2024-12-22] MEDS: IV FLUID CONTINUATION 1,000 ML IV ONE ×4 (12:11→17:24)
--- NOTE | 2024-12-22 12:25 | XR ---
EXAMINATION TYPE: XR Hip Limited LT DATE OF EXAM: 12/22/2024 12:02 PM COMPARISON: None. CLINICAL INDICATION: Female, 59 years old with history of Status post hip surgery, assess surgical al ignment, Postoperative evaluation TECHNIQUE: XR Hip Limited LT views were obtained FINDINGS: Noted are changes of total hip arthroplasty with femoral and acetabular components appearing well sea elver. Alignment is anatomic. Postsurgical soft tissue changes are evident. IMPRESSION: Satisfactory postoperative alignment [facility], , 12/22/2024 12:22 PM
[2024-12-22 15:38] VITALS: RESP 18
[2024-12-22] MEDS: ASPIRIN 325 MG TAB PO SCH (20:41)
[2024-12-22] MEDS: HYDROmorphone 1 MG/ML 1 ML SYRINGE IVP PRN (20:41)
[2024-12-22] MEDS: SENNOSIDES-DOCUSATE SODIUM 1 EACH TAB PO SCH (20:41)
[2024-12-23] MEDS: oxyCODONE-APAP 5-325MG 1 EACH TAB PO PRN (01:41)
[2024-12-23] MEDS: KETOROLAC 15 MG/ML 1 ML VIAL IVP PRN (06:22)
[2024-12-23] MEDS: droPERidol 2.5 MG/ML VIAL IVP ONE (07:45)
[2024-12-23] MEDS: SODIUM CHLORIDE 0.9% 1,000 ML IV SCH (07:45)
[2024-12-23 09:28] LABS: HCT 32.6 % (37.2-46.3); HGB 10.1 g/dL (12.0-15.0); MCH 27.2 pg (27.0-32.0); MCV 87.6 FL (80.0-97.0); NRBC Per 100 WBC 0 X 10*3/uL (0.00-0.01); Platelet Count 341 X 10*3/uL (140-440); RBC 3.72 X 10*6/uL (4.10-5.20); RDW 14.2 % (11.5-14.5); WBC 15.17 X 10*3/uL (4.50-10.00)
[2024-12-23] MEDS: hydrOXYzine pamoate 25 MG CAP PO PRN (09:28)
[2024-12-23 09:29] LABS: Basophils # (A) 0.03 X 10*3/uL (0.00-0.10); Basophils % (A) 0.2 %; Eosinophils # (A) 0 X 10*3/uL (0.04-0.35); Eosinophils % (A) 0 %; Lymphocytes # (A) 2.02 X 10*3/uL (0.90-5.00); Lymphocytes % (A) 13.3 %; Monocytes # (A) 1.48 X 10*3/uL (0.20-1.00); Monocytes % (A) 9.8 %; Neutrophils # (A) 11.57 X 10*3/uL (1.80-7.70); Neutrophils % (A) 76.2 %
--- NOTE | 2024-12-23 10:33 | P.ANPRN ---
Procedure Note - Anesthesia - Nerve Block Performed Left Fredo Single Time Out Performed: Yes Date of Procedure: 12/22/24 Procedure Start Time: 08:42 Procedure Stop Time: 08:45 Location of Patient: PreOp Indication: Acute Post-Operative Pain, Requested by Surgeon Sedation Type: Sedate with meaningful contact maintained Preparation: Sterile Prep Position: Supine Catheter: (Ropivacaine 0.5% 20 cc was dexamethasone 4 mg) Needle Types: Pajunk Needle Gauge: 21 Ultrasound used to visualize needle placement: Yes Ultrasound used to observe medication spread: Yes Blood Aspirated: No Pain Paresthesia on Injection Noted: No Resistance on Injection: Normal Image Stored and Saved: Yes Events: Uneventful and Well Tolerated
--- NOTE | 2024-12-23 11:15 | P.DS ---
Providers Expected date of discharge: 12/23/24 Attending physician: Tulio Guzmán Consults: 12/22/24 17:30 Consult Physician Routine Consulting Provider: Isabel Negron Consult Reason/Comments: medical management Do you want consulting provider notified?: Yes Primary care physician: Mamadou Cordero - Discharge Diagnosis(es) (1) Osteoarthritis of left hip Current Visit: Yes Status: Acute (2) S/P total hip arthroplasty Current Visit: Yes Status: Acute Hospital Course: This is a 59-year-old female with known history of degenerative arthritis of the left hip. The patient presented for evaluation as an outpatient. After discussion and consideration patient elects to proceed with total hip arthroplasty. The patient is seen preoperatively by Dr. Guzmán and medically cleared for surgery by their primary care physician. Patient is admitted to [facility] on 12/22/2024 for total hip arthroplasty. The procedure is performed without complication or sequelae. The patient is doing well postoperatively. Labs and vital signs are stable on day of discharge. On day of discharge patient's hip incision is healing well. There is minimal erythema. There is no drainage noted at this time. There is minimal soft tissue swelling to the hip and thigh. Patient has full foot and ankle motion without difficulty or pain. Calf is soft and nontender to palpation. Neurovascular status to the left lower extremity is intact. Patient is discharged home in good condition. Patient has a pain contract with her primary care physician who will manage postoperative pain medication. Please see med rec for accurate list of home medications. Plan - Discharge Summary Discharge Rx Participant: Yes New Discharge Prescriptions: New Aspirin 325 mg PO BID #60 tab Sennosides [Senokot] 2 tab PO DAILY PRN #60 tablet PRN Reason: Constipation Ketorolac [Toradol] 10 mg PO Q6HR #12 tab No Action Cholecalciferol [Vitamin D3 (25 Mcg = 1000 Iu)] 2,000 unit PO DAILY lisinopriL [Zestril] 20 mg PO HS Multivitamins, Thera [Multivitamin (formulary)] 1 tab PO DAILY Umlwonb-Appg-Gszw [phone] [Excedrin] 1 each PO DAILY PRN PRN Reason: Pain amLODIPine [Norvasc] 5 mg PO DAILY Ascorbic Acid [Vitamin C] 500 mg PO DAILY oxyCODONE HCL/ACETAMINOPHEN [Oxycodone-Acetaminophn 7.5-325] 1 each PO BID PRN PRN Reason: Pain Pantoprazole [Protonix] 40 mg PO DAILY Meloxicam 15 mg PO DAILY Aspirin 325 mg PO DAILY PRN PRN Reason: Pain Discharge Medication List Cholecalciferol [Vitamin D3 (25 Mcg = 1000 Iu)] 2,000 unit PO DAILY 12/03/19 [History] Multivitamins, Thera [Multivitamin (formulary)] 1 tab PO DAILY 12/03/19 [History] lisinopriL [Zestril] 20 mg PO HS 12/03/19 [History] Ascorbic Acid [Vitamin C] 500 mg PO DAILY 09/14/21 [History] Aspirin 325 mg PO DAILY PRN 09/14/21 [History] Pybdbax-Huco-Ahtn [phone] [Excedrin] 1 each PO DAILY PRN 09/14/21 [History] Meloxicam 15 mg PO DAILY 09/14/21 [History] Pantoprazole [Protonix] 40 mg PO DAILY 09/14/21 [History] amLODIPine [Norvasc] 5 mg PO DAILY 09/14/21 [History] oxyCODONE HCL/ACETAMINOPHEN [Oxycodone-Acetaminophn 7.5-325] 1 each PO BID PRN 12/18/24 [History] Aspirin 325 mg PO BID #60 tab 12/22/24 [Rx] Ketorolac [Toradol] 10 mg PO Q6HR #12 tab 12/22/24 [Rx] Sennosides [Senokot] 2 tab PO DAILY PRN #60 tablet 12/22/24 [Rx] Follow up Appointment(s)/Referral(s): Mamadou Cordero DO [Primary Care Provider] - 12/26/24 2:00 pm (withChristiano) Tulio Guzmán DO [Doctor of Osteopathic Medicine] - 01/05/25 1:00 pm (With Kiera Fernández) Activity/Diet/Wound Care/Special Instructions: Weightbearing as tolerated with walker. Leave dressing intact. Dressing may be removed by home care nurse or by patient in 7 days. Then change dressing twice daily until follow up. May shower with initial dressing intact and after removal. If dressing become saturated, please remove. Please take aspirin 325mg twice daily for 30 days to prevent blood clots. Postop pain management per PCP. Recommend use of compression stockings daily until follow up to help prevent swelling and blood clots. May remove at night before sleeping. Please follow-up with [facility] in 2 weeks and call with any questions or concerns, . Discharge Disposition: HOME WITH HOME HEALTH SERVICES
[2024-12-23 14:40] VITALS: BP 102/67; PULSE 92; TEMP 98.2
--- NOTE | 2024-12-23 21:22 | CONS ---
CONSULTATION REASON FOR CONSULTATION: Advice regarding hypertension and other medical issues, requested by Surgery. HISTORY OF PRESENT ILLNESS: This is a 59-year-old woman with a past medical history of hypertension, kidney stones, GERD, was admitted after left hip surgery. The patient has complaints of hip pain. There is no history of any fever, rigors, or chills at this time. White count is slightly elevated, possibly reactive in nature. PAST MEDICAL HISTORY: Reviewed include GERD, hyperlipidemia, history of renal disease. Rest of the history and rest of the chart are also reviewed. HOME MEDICATIONS: Reviewed include meloxicam. Rest of medications reviewed. ALLERGIES: None. FAMILY HISTORY: History of pancreatic cancer. SOCIAL HISTORY: Current smoking. No history of alcohol. REVIEW OF SYSTEMS: Fourteen-point review of systems is negative except as mentioned earlier. PHYSICAL EXAMINATION: VITAL SIGNS: Pulse 61, blood pressure 109/71, respirations 18. CHEST: Clear to auscultation. CARDIOVASCULAR: S1, S2. ABDOMEN: Soft, nontender. LEGS: No edema. No swelling. Otherwise, status post left hip arthroplasty. LABORATORY DATA: Reviewed. ASSESSMENT: 1. Status post left hip arthroplasty. 2. Elevated WBC, possibly reactive. 3. Hypertension. 4. History of renal disease and history of kidney stones and lithotripsy. RECOMMENDATIONS AND DISCUSSION: This is a 59-year-old woman, who presented with multiple complex medical issues, we will monitor the patient closely. Continue the current medications. Resume the home medications. Monitor blood pressure closely. Recommend close followup with primary physician after discharge. DVT prophylaxis. Incentive spirometry. MMODL / IJN: [id number] /
== END 2024-12-23 20:40 | disposition home health service (06) ==
LOC: OR 07:38 → 4SSUR 10:41 → OR 12-23 20:40
PROVIDERS: ATTEND Orthopaedic Surgery
DX: M16.12 Unilateral primary osteoarthritis, left hip (principal); E78.5 Hyperlipidemia, unspecified; G89.18 Other acute postprocedural pain; I10 Essential (primary) hypertension; E11.9 Type 2 diabetes mellitus without complications; K21.9 Gastro-esophageal reflux disease without esophagitis; F17.200 Nicotine dependence, unspecified, uncomplicated; Z79.82 Long term (current) use of aspirin; Z79.899 Other long term (current) drug therapy; Z87.442 Personal history of urinary calculi; Z79.1 Long term (current) use of non-steroidal anti-inflammatories (NSAID); Z90.49 Acquired absence of other specified parts of digestive tract; Z98.890 Other specified postprocedural states
CPT/HCPCS: 27130; 94760; 97161; 97166; 64473; 85025; 73501; C1776; J2250; J1100; J0690 ×3; J2405; J1171 ×2; J2795; J1885; J2704; 64999